=== PATIENT | male | born 1935 | race Caucasian/White ===

== ENCOUNTER 2019-09-03 14:09 | Emergency (ER) | payer OTHER ==
[2019-09-03 14:39] VITALS: BP 118/76
--- NOTE | 2019-09-03 14:45 | UC ---
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 Denies any trauma. Bruise across top of foot and base of toes. Bruise on the toes too. Foot hurts when he walks especially along lateral side. [facility] Pt told he didn't have any broken bones. Nurse also did a doppler check of right foot that same day, she did not say anything about what she found to the pt. Gets monthly INR blood checks. Pleasant 84yo gentleman presents with daughter, c/o progressive redness, swelling, pain, eccymosis R foot and R distal lower extremity. Sx started approx 08/26/19. Denies known injury or trauma. Has been trying to elevate his leg frequently. No new sob (has hx enphymema), no new palpitations (hx atrial fibrillation, treated with coumadin x approx 13 years), no fever / chills. Denies Gi issues / melena / brbpr. Reports that he recently had an INR check, reports it was over 3. 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 Pain Intensity: 0 - Allergy/Home Medications Allergies/Adverse Reactions: Allergies Allergy/AdvReac Type Severity Reaction Status Date / Time No Known Allergies Allergy Verified 09/03/19 14:38 Home Medications: Home Medications Chondroitin Sulfate A Sodium [Optiflex-C] 400 mg PO BID 09/03/19 [History Confirmed 09/03/19] Diltiazem TAB* [Cardizem 30 MG Tab*] 30 mg PO BID 09/03/19 [History Confirmed ] Warfarin TAB(*) [Coumadin TAB(*)] 5 mg PO QPM 09/03/19 [History Confirmed ] PMH/Surg Hx/FS Hx/Imm Hx Previously Healthy: No - see hpi and rn notes - Surgical History Surgical History: Yes Surgery Procedure, Year, and Place: HERNIA CHILD;CHOLECYSTECTOMY 1-2 YRS AGO - Family History Known Family History: Positive: Non-Contributory - Social History Alcohol Use: Occasionally Substance Use Type: None Smoking Status (MU): Former Smoker When Did the Patient Quit Smoking/Using Tobacco: 1999 Review of Systems All Other Systems Reviewed And Are Negative: Yes Constitutional: Positive: Negative Skin: Positive: Other - see hpi Eyes: Positive: Negative ENT: Positive: Negative Respiratory: Positive: Other - see hpi Cardiovascular: Positive: Other - see hpi Gastrointestinal: Positive: Negative Genitourinary: Positive: Negative Motor: Positive: Other - see hpi Neurovascular: Positive: Other - see hpi Musculoskeletal: Positive: Arthralgia, Edema, Other: Neurological: Positive: Negative Psychological: Positive: Negative Is Patient Immunocompromised?: No Physical Exam Triage Information Reviewed: Yes Appearance: Well-Appearing - sitting up in chair, conversing easily and appropriately. NAD. Nontoxic general appearance., Well-Nourished Vital Signs: Initial Vital Signs Temp 98.6 F 09/03/19 14:24 Pulse 80 09/03/19 14:24 Resp 18 09/03/19 14:24 BP 118/76 09/03/19 14:24 Pulse Ox 96 09/03/19 14:24 Vital Signs Reviewed: Yes Eye Exam: Normal ENT Exam: Normal - facial expressions grossly symmetric. MMM. Neck exam: Normal - grossly nad Respiratory Exam: Other - BS equal, full. Occas exp wheezing and rhonchi no stridor. Respiratory: Positive: No respiratory distress, No accessory muscle use Cardiovascular Exam: Other - Irreg irreg, correlates with R radial pulse Abdominal Exam: Normal Abdomen Description: Positive: Nontender Musculoskeletal Exam: Other - BLE + dopplerable PT / DP pulses. Feet both warm. BLE evidence venous insuff chronic, paucity of hair growth. R calf and and pretib + edema. R foot ++ edema, and distal red partially blanching but not fully. Tender distal MT's 2-4 (5 when walks). there is purple eccymosis all 5 toes, and plantar med and lat foot. Neurological Exam: Normal - grossly nonfocal Psychological Exam: Normal - conversing easily and appropriately Psychological: Positive: Normal Response To Family Skin Exam: Other - [place] [facility] [place] [facility] Course/Dx - Course Course Of Treatment: [facility], but not available as of chart completion. Reviewed [facility] as available. D/w pt and daughter, recommend ED eval/tx. They carefully considered, they agree to go to the ED - and will leave from here to go to the ED (decline EMS) - but will go to the [facility]. I called the [facility], spoke with Dr. Philippe. Note - 28 min was spent trying to get an ED tel # but we finally succeeded. - Diagnoses Provider Diagnosis: Arthralgia, Leg edema, right Discharge ED - Sign-Out/Discharge Documenting (check all that apply): Patient Departure All imaging exams completed and their final reports reviewed: No - Discharge Plan Condition: Guarded Disposition: HOME-RECOMMEND TO ED Patient Education Materials: Leg Edema (ED), Swollen Joint (ED) Referrals: Ronald Cabrera MD [Primary Care Provider] - Additional Instructions: Please go to the Emergency Department. Stop and call 911 if problems en route. - Billing Disposition and Condition Condition: GUARDED Disposition: Home-Recommend to ED
== END 2019-09-03 15:30 | disposition home health service (06) ==
LOC: UCCORT 14:09
DX: M25.571 Pain in right ankle and joints of right foot (principal); S90.31XA Contusion of right foot, initial encounter; R60.0 Localized edema; I87.2 Venous insufficiency (chronic) (peripheral); Z79.01 Long term (current) use of anticoagulants; Z87.891 Personal history of nicotine dependence; X58.XXXA Exposure to other specified factors, initial encounter; Y92.9 Unspecified place or not applicable
CPT/HCPCS: 99202; G0463